=== PATIENT | male | born 1965 | race Caucasian/White ===

== ENCOUNTER 2018-05-07 12:07 | Inpatient (IN) | payer MEDICAID, OTHER ==
[2018-05-07 13:12] LABS: ADD MAN DIFF? NO
[2018-05-07] MEDS: morphine 4 MG/ML VIAL IV (13:15)
[2018-05-07] MEDS: SOD CHLORIDE 0.9% 1,000 ML IV ×2 (13:16→17:29)
[2018-05-07] MEDS: ONDANSETRON 4 MG INJ IV ×3 (13:16→16:41)
[2018-05-07 13:20] LABS: BASOPHILS % 0.1 % (0.0-2.0); EOSINOPHILS % 0.2 % (0.0-7.0); HEMATOCRIT 42.2 % (42.0-52.0); HEMOGLOBIN 13.2 g/dl (14.0-18.0); LYMPHOCYTES # 1.4 10^3/ul (0.8-2.9); LYMPHOCYTES % 12.7 % (15.0-51.0); MEAN CORPUSCULAR HEMOGLOBIN 27.5 pg (29.0-33.0); MEAN CORPUSCULAR HGB CONC 31.3 g/dl (32.0-37.0); MEAN CORPUSCULAR VOLUME 87.9 fl (82.0-101.0); MEAN PLATELET VOLUME 10.7 fl (7.4-10.4); MONOCYTE # 0.5 10^3/ul (0.3-0.9); MONOCYTES % 4.2 % (0.0-11.0); NEUTROPHIL # 9.1 10^3/ul (1.6-7.5); NEUTROPHILS % 82.4 % (39.0-77.0); PLATELET COUNT 235 10^3/UL (140-415); RED CELL DISTRIBUTION WIDTH 13.6 % (11.5-14.5)
[2018-05-07 13:38] LABS: ALANINE AMINOTRANSFERASE 33 IU/L (13-69); ALBUMIN 4.2 g/dl (3.3-4.9); ALBUMIN/GLOBULIN RATIO 1.13; ALKALINE PHOSPHATASE 116 IU/L (42-121); AMYLASE 56 U/L (11-123); ANION GAP 12 (5-13); ASPARTATE AMINO TRANSFERASE 26 IU/L (15-46); BILIRUBIN,INDIRECT 0.3 mg/dl (0-1.1); BILIRUBIN,TOTAL 0.3 mg/dl (0.2-1.3); BLOOD UREA NITROGEN 14 mg/dl (7-20); CALCIUM 9.2 mg/dl (8.4-10.2); CARBON DIOXIDE 26 mmol/L (21-31); CHLORIDE 102 mmol/L (97-110); CREATININE 0.71 mg/dl (0.61-1.24); Estimated GFR > 60 mL/min (>60); GLUCOSE 134 mg/dl (70-220); LIPASE 30 U/L (23-300); SODIUM 140 mmol/L (135-144); TOTAL PROTEIN 7.9 g/dl (6.1-8.1)
[2018-05-07 13:49] LABS: TROPONIN-I < 0.012 ng/ml (0.000-0.120)
[2018-05-07 13:57] LABS: INR 0.89; PARTIAL THROMBOPLASTIN TIME 30.1 Sec (23.0-35.0); PROTIME 12.2 Sec (11.9-14.9)
[2018-05-07] MEDS: SOD CHLORIDE 0.9% 100 ML (14:09)
[2018-05-07] MEDS: IOHEXOL 300MG/ML 150 ML BTL (14:09)
[2018-05-07] MEDS ORDERED: ACETAMINOPHEN 325 MG TAB PO (15:30)
[2018-05-07] MEDS ORDERED: ONDANSETRON 4 MG INJ IV ×2 (15:30→16:30)
[2018-05-07 15:37] LABS: ADD UMIC NO; UR ASCORBIC ACID NEGATIVE (NEGATIVE); UR BILIRUBIN (Dip) NEGATIVE (NEGATIVE); UR BLOOD (Dip) NEGATIVE (NEGATIVE); UR CLARITY CLEAR (CLEAR); UR COLOR STRAW (YELLOW); UR GLUCOSE (Dip) NEGATIVE (NEGATIVE); UR KETONES (Dip) NEGATIVE (NEGATIVE); UR LEUKOCYTE ESTERASE (Dip) NEGATIVE Leu/ul (NEGATIVE); UR NITRITE (Dip) NEGATIVE (NEGATIVE); UR SPECIFIC GRAVITY (Dip) 1.018 (1.003-1.030); UR TOTAL PROTEIN (Dip) NEGATIVE (NEGATIVE); UR UROBILINOGEN (Dip) NEGATIVE (NEGATIVE)
[2018-05-07] MEDS: HYDROmorphONE 1 MG/ML SYG IV ×2 (15:50→16:41)
[2018-05-07] MEDS: LORAZEPAM 2 MG INJ IV (15:50)
[2018-05-07] MEDS ORDERED: NACL 0.9% 3 ML SYG IV (16:30)
[2018-05-07] MEDS: METOCLOPRAMIDE 10 MG INJ IV (17:23)
[2018-05-07] MEDS: morphine 2 MG INJ IV (17:24)
[2018-05-07 17:35] LABS: AMPHETAMINE/METHAMPHETAMINE Positive (NEGATIVE); BARBITURATES Negative (NEGATIVE); BENZODIAZEPINES Negative (NEGATIVE); CANNABINOIDS Negative (NEGATIVE); COCAINE Negative (NEGATIVE); OPIATES Positive (NEGATIVE)
[2018-05-07] MEDS: NICOTINE (14 MG/24 HR) PATCH TRANSDERM (21:01)
[2018-05-08] MEDS: METOCLOPRAMIDE 10 MG INJ IV ×4 (00:09→17:55)
[2018-05-08] MEDS: morphine 2 MG INJ IV ×6 (03:10→21:59)
[2018-05-08] MEDS: SOD CHLORIDE 0.9% 1,000 ML IV ×3 (03:10→15:08)
[2018-05-08 05:57] LABS: ADD MAN DIFF? NO
[2018-05-08 06:00] LABS: WHITE BLOOD COUNT 10.9 10^3/ul (4.8-10.8)
[2018-05-08 06:00] LABS: BASOPHILS % 0.1 % (0.0-2.0); HEMATOCRIT 41.2 % (42.0-52.0); HEMOGLOBIN 13.2 g/dl (14.0-18.0); LYMPHOCYTES # 1.4 10^3/ul (0.8-2.9); LYMPHOCYTES % 12.7 % (15.0-51.0); MEAN CORPUSCULAR HEMOGLOBIN 27.7 pg (29.0-33.0); MEAN CORPUSCULAR VOLUME 86.6 fl (82.0-101.0); MEAN PLATELET VOLUME 11.2 fl (7.4-10.4); MONOCYTE # 0.5 10^3/ul (0.3-0.9); MONOCYTES % 4.1 % (0.0-11.0); NEUTROPHILS % 82.8 % (39.0-77.0); PLATELET COUNT 225 10^3/UL (140-415); RED BLOOD COUNT 4.76 10^6/ul (4.70-6.10); RED CELL DISTRIBUTION WIDTH 13.6 % (11.5-14.5)
[2018-05-08 06:42] LABS: ALANINE AMINOTRANSFERASE 25 IU/L (13-69); ALBUMIN 3.7 g/dl (3.3-4.9); ALBUMIN/GLOBULIN RATIO 1.15; ALKALINE PHOSPHATASE 87 IU/L (42-121); ANION GAP 10 (5-13); ASPARTATE AMINO TRANSFERASE 21 IU/L (15-46); BILIRUBIN,INDIRECT 0.5 mg/dl (0-1.1); BILIRUBIN,TOTAL 0.5 mg/dl (0.2-1.3); BLOOD UREA NITROGEN 13 mg/dl (7-20); CALCIUM 8.7 mg/dl (8.4-10.2); CARBON DIOXIDE 28 mmol/L (21-31); CHLORIDE 104 mmol/L (97-110); CREATININE 0.65 mg/dl (0.61-1.24); Estimated GFR > 60 mL/min (>60); GLUCOSE 124 mg/dl (70-220); POTASSIUM 3.7 mmol/L (3.5-5.1); SODIUM 142 mmol/L (135-144); TOTAL PROTEIN 6.9 g/dl (6.1-8.1)
[2018-05-08 06:53] LABS: MAGNESIUM 1.8 mg/dl (1.7-2.5)
[2018-05-08] MEDS: NICOTINE (14 MG/24 HR) PATCH TRANSDERM (09:35)
[2018-05-08] MEDS: DIATR MEGLU/DIATRIZOATE SODIUM 120 ML BTL (11:11)
[2018-05-09] MEDS: METOCLOPRAMIDE 10 MG INJ IV ×5 (00:17→23:57)
[2018-05-09] MEDS: morphine 2 MG INJ IV ×4 (02:40→19:36)
[2018-05-09] MEDS: SOD CHLORIDE 0.9% 1,000 ML IV ×4 (02:41→23:57)
[2018-05-09 06:30] LABS: ADD MAN DIFF? NO
[2018-05-09 06:43] LABS: BASOPHILS % 0.3 % (0.0-2.0); EOSINOPHILS % 0.4 % (0.0-7.0); HEMATOCRIT 39.7 % (42.0-52.0); HEMOGLOBIN 12.8 g/dl (14.0-18.0); LYMPHOCYTES # 2.5 10^3/ul (0.8-2.9); LYMPHOCYTES % 31.6 % (15.0-51.0); MEAN CORPUSCULAR HEMOGLOBIN 28.3 pg (29.0-33.0); MEAN CORPUSCULAR HGB CONC 32.2 g/dl (32.0-37.0); MEAN CORPUSCULAR VOLUME 87.8 fl (82.0-101.0); MEAN PLATELET VOLUME 11.1 fl (7.4-10.4); MONOCYTE # 0.5 10^3/ul (0.3-0.9); MONOCYTES % 6.9 % (0.0-11.0); NEUTROPHIL # 4.8 10^3/ul (1.6-7.5); NEUTROPHILS % 60.5 % (39.0-77.0); PLATELET COUNT 225 10^3/UL (140-415); RED BLOOD COUNT 4.52 10^6/ul (4.70-6.10); RED CELL DISTRIBUTION WIDTH 13.7 % (11.5-14.5)
[2018-05-09 06:43] LABS: WHITE BLOOD COUNT 7.8 10^3/ul (4.8-10.8)
[2018-05-09 07:32] LABS: MAGNESIUM 2.1 mg/dl (1.7-2.5)
[2018-05-09 07:44] LABS: ALANINE AMINOTRANSFERASE 29 IU/L (13-69); ALBUMIN 3.5 g/dl (3.3-4.9); ALKALINE PHOSPHATASE 82 IU/L (42-121); ANION GAP 9 (5-13); ASPARTATE AMINO TRANSFERASE 23 IU/L (15-46); BILIRUBIN,INDIRECT 0.5 mg/dl (0-1.1); BILIRUBIN,TOTAL 0.5 mg/dl (0.2-1.3); BLOOD UREA NITROGEN 18 mg/dl (7-20); CALCIUM 8.8 mg/dl (8.4-10.2); CARBON DIOXIDE 28 mmol/L (21-31); CHLORIDE 108 mmol/L (97-110); CREATININE 0.75 mg/dl (0.61-1.24); Estimated GFR > 60 mL/min (>60); GLUCOSE 99 mg/dl (70-220); POTASSIUM 3.6 mmol/L (3.5-5.1); SODIUM 145 mmol/L (135-144); TOTAL PROTEIN 6.4 g/dl (6.1-8.1)
[2018-05-09] MEDS: NICOTINE (14 MG/24 HR) PATCH TRANSDERM (09:06)
[2018-05-10] MEDS: morphine 2 MG INJ IV ×2 (00:02→09:21)
[2018-05-10] MEDS: METOCLOPRAMIDE 10 MG INJ IV ×2 (06:53→13:03)
[2018-05-10] MEDS: NICOTINE (14 MG/24 HR) PATCH TRANSDERM (09:16)
[2018-05-10] MEDS: SOD CHLORIDE 0.9% 1,000 ML IV (09:24)
[2018-05-10] MEDS: INFLUENZA VIRUS VACCINE 0.5 ML (DISPENSING) IM* (13:03)
== END 2018-05-10 14:55 | disposition home or self-care (01) | DRG 390 ==
LOC: E/R 12:07 → 2NE 15:31
DX: K56.609 Unspecified intestinal obstruction, unspecified as to partial versus complete obstruction (principal); E66.9 Obesity, unspecified; Z68.34 Body mass index [BMI] 34.0-34.9, adult; F17.200 Nicotine dependence, unspecified, uncomplicated; F15.10 Other stimulant abuse, uncomplicated; F11.10 Opioid abuse, uncomplicated; Z90.49 Acquired absence of other specified parts of digestive tract
CPT/HCPCS: 36415; 74018; 74177; 74250; 80053; 80307; 81003; 82150; 83690; 83735; 84100; 84484; 85025; 85610; 85730; 87086; 90686; 93005; 96374; 96375; 99291-25